=== PATIENT | male | born 1950 | race Caucasian/White ===

== ENCOUNTER 2020-06-05 06:11 | Inpatient (IN) ==
[2020-06-05] MEDS ORDERED: Al Hydrox/Mg Hydrox/Simet LIQ 30 ML UDC PO ONE (06:51)
[2020-06-05] MEDS ORDERED: Famotidine IV 10 MG/ML 2 ml VIAL (20 mg) IV ONE (06:51)
[2020-06-05] MEDS ORDERED: NS 0.9% 1000 ml BAG 1,000 ML IV ONE (07:49)
[2020-06-05] MEDS ORDERED: Labetalol IV 5 MG/ML 20 ml VIAL IV PUSH ONE (08:15)
[2020-06-05 08:35] LABS: ABS Lymphocytes 0.6 10^3/ul (1.0-4.8); ABS Monocytes 0.6 10^3/ul (0-0.8); ABS Neutrophils 14.7 10^3/ul (1.5-7.7); Eosinophil % 0.1 %; Hematocrit 52 % (42-52); Hemoglobin 17.9 g/dL (14.0-18.0); Lymphocyte % 3.8 %; Mean Corpuscular HGB Conc 34 g/dL (31-36); Mean Corpuscular Hemoglobin 32 pg (27-31); Mean Corpuscular Volume 92 fL (80-94); Mean Platelet Volume 9.1 fL (7.4-10.4); Nucleated Red Blood Cells % 0.1; Platelet Count 179 10^3/uL (150-450); Red Blood Count 5.64 10^6 /uL (4.18-5.48); Red Cell Distribution Width 14 % (10-15); White Blood Count 15.9 10^3/uL (3.5-10.8)
[2020-06-05 08:46] LABS: Troponin I 0.01 ng/mL (<0.03)
[2020-06-05 08:48] LABS: ALT 10 U/L (7-52); Albumin 4.6 g/dL (3.2-5.2); Albumin/Globulin Ratio 1.6 (1-3); Alkaline Phosphatase 114 U/L (34-104); BUN/Creatinine Ratio 14.5 (8-20); Blood Urea Nitrogen 11 mg/dL (6-24); CO2 Carbon Dioxide 24 mmol/L (22-32); Calcium 9.7 mg/dL (8.6-10.3); Chloride 102 mmol/L (101-111); EGFR African American 122.7 (>60); EGFR Non-African American 101.4 (>60); Globulin 2.8 g/dL (2-4); Glucose 180 mg/dL (70-100); Lipase < 10 U/L (11.0-82.0); Sodium 140 mmol/L (135-145); Total Protein 7.4 g/dL (6.4-8.9)
[2020-06-05] MEDS ORDERED: Iohexol 300 (CONTRAST) 10 ML SDV IV ONE (09:16)
[2020-06-05 09:45] LABS: Anion Gap 14 mmol/L (2-11)
[2020-06-05] MEDS ORDERED: hydrALAZINE 20 mg/ml 1 ML Vial IV IV SLOW PU ONE ×2 (11:20→21:22)
[2020-06-05 11:26] LABS: Potassium Redraw 3.2 mmol/L (3.5-5.0)
[2020-06-05 11:28] LABS: Troponin I 0.02 ng/mL (<0.03)
[2020-06-05] MEDS ORDERED: Morphine 4 MG/ML VIAL (1 ml) IV ONE (11:50)
[2020-06-05 13:14] LABS: Magnesium 1.9 mg/dL (1.9-2.7)
[2020-06-05 14:48] LABS: C Reactive Protein 8.42 mg/L (<8.01)
[2020-06-05] MEDS ORDERED: Gadoteridol (CONTRAST) 279.3 MG/ML 10 ML IV ONE (16:15)
[2020-06-05] MEDS: KCL 20 MEQ/100 ML IVPREMIX 20 MEQ/100 ML BAG IV SCH ×2 (16:16→19:48)
[2020-06-05] MEDS: Morphine 2 MG/ML SYRINGE IV PRN (21:51)
[2020-06-05] MEDS: NS 0.9% 1000 ml BAG 1,000 ML IV SCH (21:53)
[2020-06-06] MEDS: Morphine 2 MG/ML SYRINGE IV PRN (02:23)
[2020-06-06 04:42] LABS: ABS Basophils 0.1 10^3/ul (0-0.2); ABS Eosinophils 0.1 10^3/ul (0-0.6); ABS Lymphocytes 1.1 10^3/ul (1.0-4.8); ABS Monocytes 1.4 10^3/ul (0-0.8); ABS Neutrophils 11.1 10^3/ul (1.5-7.7); Eosinophil % 0.5 %; Hematocrit 46 % (42-52); Hemoglobin 15.8 g/dL (14.0-18.0); Lymphocyte % 7.8 %; Mean Corpuscular HGB Conc 34 g/dL (31-36); Mean Corpuscular Hemoglobin 32 pg (27-31); Mean Corpuscular Volume 93 fL (80-94); Mean Platelet Volume 9.2 fL (7.4-10.4); Nucleated Red Blood Cells % 0.1; Platelet Count 150 10^3/uL (150-450); Red Blood Count 4.99 10^6 /uL (4.18-5.48); Red Cell Distribution Width 14 % (10-15); White Blood Count 13.7 10^3/uL (3.5-10.8)
[2020-06-06 04:59] LABS: BUN/Creatinine Ratio 15.1 (8-20); Calcium 8.9 mg/dL (8.6-10.3); EGFR African American 128.5 (>60); EGFR Non-African American 106.2 (>60)
[2020-06-06 06:58] LABS: Magnesium 1.8 mg/dL (1.9-2.7)
[2020-06-06] MEDS: KCL 20 MEQ/100 ML IVPREMIX 20 MEQ/100 ML BAG IV SCH ×3 (07:21→20:14)
[2020-06-06] MEDS ORDERED: Pantoprazole VIAL 40 MG VIAL IV SCH (09:00)
[2020-06-06] MEDS: NS 0.9% 1000 ml BAG 1,000 ML IV SCH (10:52)
[2020-06-06] MEDS ORDERED: fentaNYL 100 mcg/2 ml 50 MCG/ML VIAL ONE (11:02)
[2020-06-06] MEDS ORDERED: Midazolam 10 mg/10 ml VIAL 1 mg/ml 10 ml VIAL (10 mg) ONE (11:02)
[2020-06-06] MEDS ORDERED: Piperacillin/Tazobac ADVAN 3.375 GM in NS 0.9% 100 ml BAG 100 ML IV ONE (15:58)
[2020-06-06] MEDS ORDERED: Zosyn per Pharmacy NOTE FOLLOW UP SCH (16:00)
[2020-06-06] MEDS ORDERED: Magnesium Sulfate 2 gm BAG 2 GM/50 ML BAG IVPB ONE (16:49)
[2020-06-06] MEDS ORDERED: KCL 20 MEQ/100 ML IVPREMIX 20 MEQ/100 ML BAG IV ONE (17:00)
[2020-06-06 17:39] LABS: Albumin 3.9 g/dL (3.2-5.2); Albumin/Globulin Ratio 1.8 (1-3); Globulin 2.2 g/dL (2-4); Indirect Bilirubin 1.8 mg/dL (0.3-1.0); Total Bilirubin 2.4 mg/dL (0.2-1.0); Total Protein 6.1 g/dL (6.4-8.9)
[2020-06-06] MEDS: Pantoprazole VIAL 40 MG VIAL IV SCH (21:21)
[2020-06-06] MEDS: ZOSYN 3.375 GM Q8H per EXTENDED INFUSION IV SCH (21:21)
[2020-06-07] MEDS: NS 0.9% 1000 ml BAG 1,000 ML IV SCH (01:28)
[2020-06-07] MEDS: ZOSYN 3.375 GM Q8H per EXTENDED INFUSION IV SCH ×2 (04:51→16:12)
[2020-06-07 06:13] LABS: ABS Eosinophils 0.2 10^3/ul (0-0.6); ABS Lymphocytes 0.8 10^3/ul (1.0-4.8); ABS Monocytes 1.1 10^3/ul (0-0.8); ABS Neutrophils 7.3 10^3/ul (1.5-7.7); Eosinophil % 2.2 %; Hematocrit 43 % (42-52); Hemoglobin 14.7 g/dL (14.0-18.0); Lymphocyte % 8.1 %; Mean Corpuscular HGB Conc 34 g/dL (31-36); Mean Corpuscular Hemoglobin 32 pg (27-31); Mean Corpuscular Volume 94 fL (80-94); Nucleated Red Blood Cells % 0.1; Platelet Count 132 10^3/uL (150-450); Red Blood Count 4.62 10^6 /uL (4.18-5.48); Red Cell Distribution Width 14 % (10-15); White Blood Count 9.4 10^3/uL (3.5-10.8)
[2020-06-07 06:37] LABS: Albumin 3.4 g/dL (3.2-5.2); Albumin/Globulin Ratio 1.8 (1-3); BUN/Creatinine Ratio 16.4 (8-20); Calcium 8.4 mg/dL (8.6-10.3); EGFR African American 128.5 (>60); EGFR Non-African American 106.2 (>60); Globulin 1.9 g/dL (2-4); Potassium 3.5 mmol/L (3.5-5.0); Total Bilirubin 2.3 mg/dL (0.2-1.0); Total Protein 5.3 g/dL (6.4-8.9)
[2020-06-07] MEDS: Pantoprazole VIAL 40 MG VIAL IV SCH ×2 (08:24→20:19)
[2020-06-07] MEDS: KCL 20 MEQ/100 ML IVPREMIX 20 MEQ/100 ML BAG IV SCH ×3 (08:25→14:13)
[2020-06-07] MEDS ORDERED: Potassium Chloride LIQUID 20 MEQ/15 ML LIQUID PO ONE (14:51)
[2020-06-07 16:17] LABS: Troponin I 0.03 ng/mL (<0.03)
[2020-06-07] MEDS ORDERED: Enoxaparin 100 MG/ML SYR SUBCUT ONE (18:43)
[2020-06-08] MEDS: ZOSYN 3.375 GM Q8H per EXTENDED INFUSION IV SCH ×4 (01:27→16:33)
[2020-06-08 06:41] LABS: INR 1.36 (0.82-1.09)
[2020-06-08 06:48] LABS: ABS Basophils 0.1 10^3/ul (0-0.2); ABS Eosinophils 0.3 10^3/ul (0-0.6); ABS Lymphocytes 0.8 10^3/ul (1.0-4.8); ABS Monocytes 0.7 10^3/ul (0-0.8); ABS Neutrophils 5.5 10^3/ul (1.5-7.7); Eosinophil % 3.6 %; Hematocrit 44 % (42-52); Hemoglobin 15.1 g/dL (14.0-18.0); Lymphocyte % 11.2 %; Mean Corpuscular HGB Conc 34 g/dL (31-36); Mean Corpuscular Hemoglobin 32 pg (27-31); Mean Corpuscular Volume 95 fL (80-94); Mean Platelet Volume 9.3 fL (7.4-10.4); Platelet Count 133 10^3/uL (150-450); Red Blood Count 4.69 10^6 /uL (4.18-5.48); Red Cell Distribution Width 15 % (10-15); White Blood Count 7.3 10^3/uL (3.5-10.8)
[2020-06-08 06:55] LABS: BUN/Creatinine Ratio 14.9 (8-20); Calcium 8.7 mg/dL (8.6-10.3); EGFR African American 126.5 (>60); EGFR Non-African American 104.6 (>60); Magnesium 1.9 mg/dL (1.9-2.7); Potassium 3.7 mmol/L (3.5-5.0)
[2020-06-08] MEDS ORDERED: Magnesium Sulfate 2 gm BAG 2 GM/50 ML BAG IVPB ONE (07:02)
[2020-06-08] MEDS ORDERED: Propofol 10 MG/ML 20 ML BTL ONE (08:04)
[2020-06-08] MEDS ORDERED: Lidocaine 2% PF 5 ML VIAL ONE (08:04)
[2020-06-08] MEDS ORDERED: Midazolam 2 mg/2 ml VIAL 1 mg/ml 2 ml VIAL (2 mg) ONE (08:05)
[2020-06-08] MEDS ORDERED: fentaNYL 250 mcg/5 ml 50 MCG/ML 5 ml VIAL (250 MCG) ONE (08:05)
[2020-06-08] MEDS ORDERED: Rocuronium 50 mg VIAL 10 mg/ml 5 ml VIAL (50 mg) ONE (08:05)
[2020-06-08] MEDS ORDERED: NS 0.9% 1000 ml BAG 1,000 ML IV SCH ×2 (08:30→16:15)
[2020-06-08] MEDS: Pantoprazole VIAL 40 MG VIAL IV SCH ×2 (08:45→19:53)
[2020-06-08] MEDS: KCL 10 MEQ/50 ML IVPREMIX 10 MEQ/50 ML BAG IV SCH ×2 (11:10→11:50)
[2020-06-08] MEDS ORDERED: KCL premix 10 MEQ/50 ML x 3 RUNS IV SCH (11:30)
[2020-06-08] MEDS: KCL premix 10 MEQ/50 ML x 3 RUNS IV SCH ×2 (12:44→16:27)
[2020-06-08] MEDS ORDERED: Iohexol 350 (CONTRAST) 200 ML MDV IV ONE (13:30)
[2020-06-08] MEDS ORDERED: VERAPAMIL 2.5 MG/ML 2 ML VIAL ** 5 mg/2 ml ONE (13:30)
[2020-06-08] MEDS ORDERED: Midazolam 5 mg/5 ml VIAL 1 mg/ml 5 ml VIAL (5 mg) ONE (13:30)
[2020-06-08] MEDS ORDERED: diPHENhydraMINE IV 50 MG/ML 1 ml VIAL (BENADRYL) ONE (13:30)
[2020-06-08] MEDS ORDERED: Heparin 2 UNITS/ML 1000 mls 2,000 ML IV ONE (13:30)
[2020-06-08] MEDS ORDERED: Lidocaine 1% VIAL 10 MG/ML VIAL ONE (13:30)
[2020-06-08] MEDS ORDERED: nitroGLYCERIN DRIP 25,000 MCG/250 ML BTL ONE (13:30)
[2020-06-08] MEDS ORDERED: Heparin 1,000 UNIT/ML 10 ml (10,000 UNITS) CATHLAB/DIALYSIS ONE (13:30)
[2020-06-08] MEDS ORDERED: hydrALAZINE 20 mg/ml 1 ML Vial IV ONE ×2 (14:25→16:07)
[2020-06-08] MEDS ORDERED: Nitro 2% OINT (Nitroglycerin) 1 INCH/PAK ONE (14:27)
[2020-06-08] MEDS ORDERED: Adenosine (DIAGNOSTIC) 3 mg/ml 20 ML VIAL (60 MG) IV ONE (14:42)
[2020-06-08] MEDS ORDERED: Heparin 2 UNITS/ML 1000 mls 1,000 ML IV ONE (15:15)
[2020-06-09] MEDS: ZOSYN 3.375 GM Q8H per EXTENDED INFUSION IV SCH ×2 (02:55→09:31)
[2020-06-09 05:29] LABS: ABS Eosinophils 0.1 10^3/ul (0-0.6); ABS Lymphocytes 0.5 10^3/ul (1.0-4.8); ABS Monocytes 0.9 10^3/ul (0-0.8); ABS Neutrophils 6.8 10^3/ul (1.5-7.7); Eosinophil % 1.1 %; Hematocrit 41 % (42-52); Hemoglobin 13.9 g/dL (14.0-18.0); Lymphocyte % 5.8 %; Mean Corpuscular HGB Conc 34 g/dL (31-36); Mean Corpuscular Hemoglobin 32 pg (27-31); Mean Corpuscular Volume 93 fL (80-94); Platelet Count 164 10^3/uL (150-450); Red Blood Count 4.36 10^6 /uL (4.18-5.48); Red Cell Distribution Width 14 % (10-15); White Blood Count 8.2 10^3/uL (3.5-10.8)
[2020-06-09 05:46] LABS: BUN/Creatinine Ratio 16.4 (8-20); Calcium 8.5 mg/dL (8.6-10.3); EGFR African American 128.5 (>60); EGFR Non-African American 106.2 (>60); Magnesium 1.9 mg/dL (1.9-2.7); Potassium 3.6 mmol/L (3.5-5.0)
[2020-06-09] MEDS: Pantoprazole VIAL 40 MG VIAL IV SCH (09:31)
[2020-06-09 10:27] LABS: INR 1.32 (0.82-1.09)
[2020-06-09 14:14] VITALS: BP 155/88
== END 2020-06-09 15:35 | disposition home or self-care (01) ==
LOC: MEDTELE 06:11 → ED 06:11 → OBSVTOIN 12:19 → MEDTELE 13:39
PROVIDERS: ADMIT Internal Medicine; ATTEND Internal Medicine

== ENCOUNTER 2021-06-18 13:17 | Inpatient (IN) ==
[2021-06-18] MEDS ORDERED: Senna TAB 8.6 mg TAB PO PRN (17:12)
[2021-06-19 07:05] LABS: ABS Eosinophils 0.2 10^3/ul (0-0.6); ABS Lymphocytes 1.2 10^3/ul (1.0-4.8); ABS Monocytes 0.9 10^3/ul (0-0.8); ABS Neutrophils 4.7 10^3/ul (1.5-7.7); Eosinophil % 2.3 %; Hematocrit 44 % (42-52); Hemoglobin 15.3 g/dL (14.0-18.0); Lymphocyte % 17.6 %; Mean Corpuscular HGB Conc 35 g/dL (31-36); Mean Corpuscular Hemoglobin 32 pg (27-31); Mean Corpuscular Volume 93 fL (80-94); Mean Platelet Volume 9.7 fL (7.4-10.4); Platelet Count 150 10^3/uL (150-450); Red Blood Count 4.74 10^6 /uL (4.18-5.48); Red Cell Distribution Width 15 % (10-15)
[2021-06-19 07:25] LABS: Albumin 3.7 g/dL (3.2-5.2); Albumin/Globulin Ratio 1.9 (1-3); Calcium 9.1 mg/dL (8.6-10.3); Globulin 1.9 g/dL (2-4); Potassium 3.9 mmol/L (3.5-5.0); Total Bilirubin 1.3 mg/dL (0.2-1.0); Total Protein 5.6 g/dL (6.4-8.9); eGFR CKD-EPI 92.6 (>60)
[2021-06-19] MEDS: Aspirin EC 81 mg TAB.EC (enteric coated) PO SCH (09:55)
[2021-06-19] MEDS: Cholecalciferol (VIT D3) 1,000 unit TAB PO SCH (09:57)
[2021-06-20] MEDS: Aspirin EC 81 mg TAB.EC (enteric coated) PO SCH (10:20)
[2021-06-20] MEDS: Cholecalciferol (VIT D3) 1,000 unit TAB PO SCH (10:20)
[2021-06-21] MEDS: Aspirin EC 81 mg TAB.EC (enteric coated) PO SCH (08:16)
[2021-06-21] MEDS: Cholecalciferol (VIT D3) 1,000 unit TAB PO SCH (08:16)
[2021-06-22] MEDS: Cholecalciferol (VIT D3) 1,000 unit TAB PO SCH (09:25)
[2021-06-22] MEDS: Aspirin EC 81 mg TAB.EC (enteric coated) PO SCH (09:26)
[2021-06-23] MEDS: Aspirin EC 81 mg TAB.EC (enteric coated) PO SCH (09:41)
[2021-06-23] MEDS: Cholecalciferol (VIT D3) 1,000 unit TAB PO SCH (09:41)
[2021-06-24] MEDS: Aspirin EC 81 mg TAB.EC (enteric coated) PO SCH (09:10)
[2021-06-24] MEDS: Cholecalciferol (VIT D3) 1,000 unit TAB PO SCH (09:10)
[2021-06-24 12:05] LABS: Urine Appearance Clear; Urine Bilirubin Negative (Negative); Urine Blood 1+ (Negative); Urine Color Yellow; Urine Glucose Negative (Negative); Urine Ketones Negative (Negative); Urine Nitrite Negative (Negative); Urine Protein Negative (Negative); Urine Specific Gravity 1.011 (1.002-1.030); Urine Urobilinogen Negative (Negative)
[2021-06-24 12:12] LABS: Urine Bacteria Absent (Absent); Urine Red Blood Cell 2+(6-10/hpf) (Absent); Urine Squamous Epithelial Cell Present (Absent); Urine White Blood Cell 1+(6-10/hpf) (Absent)
[2021-06-25] MEDS: Aspirin EC 81 mg TAB.EC (enteric coated) PO SCH (09:20)
[2021-06-25] MEDS: Cholecalciferol (VIT D3) 1,000 unit TAB PO SCH (09:20)
[2021-06-26 06:47] LABS: ABS Eosinophils 0.2 10^3/ul (0-0.6); ABS Lymphocytes 1.2 10^3/ul (1.0-4.8); ABS Monocytes 0.7 10^3/ul (0-0.8); ABS Neutrophils 5.1 10^3/ul (1.5-7.7); Eosinophil % 2.3 %; Hematocrit 42 % (42-52); Hemoglobin 14.3 g/dL (14.0-18.0); Lymphocyte % 16.8 %; Mean Corpuscular HGB Conc 34 g/dL (31-36); Mean Corpuscular Hemoglobin 32 pg (27-31); Mean Corpuscular Volume 93 fL (80-94); Mean Platelet Volume 9.6 fL (7.4-10.4); Platelet Count 142 10^3/uL (150-450); Red Blood Count 4.53 10^6 /uL (4.18-5.48); Red Cell Distribution Width 15 % (10-15); White Blood Count 7.2 10^3/uL (3.5-10.8)
[2021-06-26 07:15] LABS: Albumin 3.5 g/dL (3.2-5.2); Albumin/Globulin Ratio 2.1 (1-3); Calcium 8.8 mg/dL (8.6-10.3); Globulin 1.7 g/dL (2-4); Potassium 3.8 mmol/L (3.5-5.0); Total Bilirubin 0.6 mg/dL (0.2-1.0); Total Protein 5.2 g/dL (6.4-8.9); eGFR CKD-EPI 97.7 (>60)
[2021-06-26] MEDS: Cholecalciferol (VIT D3) 1,000 unit TAB PO SCH (08:42)
[2021-06-26] MEDS: Aspirin EC 81 mg TAB.EC (enteric coated) PO SCH (08:42)
[2021-06-27] MEDS: Aspirin EC 81 mg TAB.EC (enteric coated) PO SCH (11:42)
[2021-06-27] MEDS: Cholecalciferol (VIT D3) 1,000 unit TAB PO SCH (11:43)
[2021-06-28] MEDS: Aspirin EC 81 mg TAB.EC (enteric coated) PO SCH (10:05)
[2021-06-28] MEDS: Cholecalciferol (VIT D3) 1,000 unit TAB PO SCH (10:06)
[2021-06-29] MEDS: Aspirin EC 81 mg TAB.EC (enteric coated) PO SCH (09:09)
[2021-06-29] MEDS: Cholecalciferol (VIT D3) 1,000 unit TAB PO SCH (09:09)
[2021-06-30] MEDS: Cholecalciferol (VIT D3) 1,000 unit TAB PO SCH (09:39)
[2021-06-30] MEDS: Aspirin EC 81 mg TAB.EC (enteric coated) PO SCH (09:39)
[2021-07-01] MEDS: Aspirin EC 81 mg TAB.EC (enteric coated) PO SCH (07:43)
[2021-07-01] MEDS: Cholecalciferol (VIT D3) 1,000 unit TAB PO SCH (07:43)
[2021-07-02] MEDS: Aspirin EC 81 mg TAB.EC (enteric coated) PO SCH (10:48)
[2021-07-02] MEDS: Cholecalciferol (VIT D3) 1,000 unit TAB PO SCH (10:49)
[2021-07-03 04:25] LABS: ABS Eosinophils 0.1 10^3/ul (0-0.6); ABS Lymphocytes 1.4 10^3/ul (1.0-4.8); ABS Monocytes 0.7 10^3/ul (0-0.8); ABS Neutrophils 4.3 10^3/ul (1.5-7.7); Eosinophil % 2.2 %; Hematocrit 44 % (42-52); Hemoglobin 14.6 g/dL (14.0-18.0); Lymphocyte % 20.8 %; Mean Corpuscular HGB Conc 34 g/dL (31-36); Mean Corpuscular Hemoglobin 31 pg (27-31); Mean Corpuscular Volume 92 fL (80-94); Mean Platelet Volume 9.6 fL (7.4-10.4); Nucleated Red Blood Cells % 0.1; Platelet Count 123 10^3/uL (150-450); Red Cell Distribution Width 15 % (10-15); White Blood Count 6.5 10^3/uL (3.5-10.8)
[2021-07-03 04:44] LABS: Albumin 3.6 g/dL (3.2-5.2); Albumin/Globulin Ratio 1.8 (1-3); Calcium 9.3 mg/dL (8.6-10.3); Potassium 3.8 mmol/L (3.5-5.0); Total Bilirubin 1.1 mg/dL (0.2-1.0); Total Protein 5.6 g/dL (6.4-8.9); eGFR CKD-EPI 94.6 (>60)
[2021-07-03] MEDS: Aspirin EC 81 mg TAB.EC (enteric coated) PO SCH (09:30)
[2021-07-03] MEDS: Cholecalciferol (VIT D3) 1,000 unit TAB PO SCH (09:30)
[2021-07-04] MEDS: Aspirin EC 81 mg TAB.EC (enteric coated) PO SCH (08:42)
[2021-07-04] MEDS: Cholecalciferol (VIT D3) 1,000 unit TAB PO SCH (08:42)
[2021-07-05 04:55] VITALS: BP 143/86
[2021-07-05] MEDS: Cholecalciferol (VIT D3) 1,000 unit TAB PO SCH (07:46)
[2021-07-05] MEDS: Aspirin EC 81 mg TAB.EC (enteric coated) PO SCH (07:46)
== END 2021-07-05 16:39 | disposition home health service (06) | DRG 58 ==
LOC: PMRU 15:59
PROVIDERS: ADMIT Physical Medicine & Rehabilitation; ATTEND Physical Medicine & Rehabilitation

== ENCOUNTER 2023-05-10 21:15 | Inpatient (IN) ==
[2023-05-10 22:19] LABS: ABS Basophils 0.1 10^3/uL (0.0-0.1); ABS Eosinophils 0.3 10^3/uL (0.0-0.5); ABS Monocytes 1.2 10^3/uL (0.0-1.1); ABS Neutrophils 9.9 10^3/uL (1.5-7.6); ABS Nucleated RBC 0.01 10^3/ul; Eosinophil % 2.4 %; Hematocrit 40.8 % (38-53); Hemoglobin 13.9 g/dL (13.2-16.3); Lymphocyte % 7.7 %; Mean Corpuscular Hemoglobin 31.9 pg (27-33); Mean Corpuscular Hgb Conc 34.1 g/dL (31-36); Mean Corpuscular Volume 93.6 fL (80-97); Mean Platelet Volume 7.8 fL (7.5-11.2); Platelet Count 260 10^3/uL (150-450); Red Blood Count 4.36 10^6/uL (4.06-5.63); Red Cell Distribution Width 15.2 % (12-17); White Blood Count 12.4 10^3/uL (3.6-10.2)
[2023-05-10 22:25] LABS: INR 1.21 (0.83-1.13)
[2023-05-10 23:09] LABS: Albumin 3.9 g/dL (3.2-5.2); Calcium 9.1 mg/dL (8.6-10.3); Creatinine, Serum 0.85 mg/dL (0.67-1.17); Potassium 4.6 mmol/L (3.5-5.0); Total Bilirubin 1.2 mg/dL (0.2-1.0); Total Protein 5.9 g/dL (6.4-8.9); eGFR CKD-EPI 92.3 (>60)
[2023-05-10] MEDS: Albuterol 2.5mg/3 ml (0.083%) NEB.SOLN INH ONE (23:25)
[2023-05-10 23:42] LABS: High Sensitivity Troponin 1 Hr 812 pg/mL (<20)
[2023-05-10 23:47] LABS: Activated Partial Thrombo Time 38.7 seconds (26.0-38.0)
[2023-05-11] MEDS: Heparin DRIP 25,000 UNITS BAG 25,000 UNITS/250 ML BAG IV SCH (00:10)
[2023-05-11] MEDS: Heparin 5000 UNITS/ML 1 mL VIAL IV SCH (00:11)
[2023-05-11 01:42] LABS: High Sensitivity Troponin 3 Hr 685 pg/mL (<20)
[2023-05-11] MEDS ORDERED: Albuterol HFA INHALER 8 gm MDI INH PRN (01:51)
[2023-05-11] MEDS: cefTRIAXone 1 gm/50 mL D5W 1 GM/50 ML BAG IV SCH (02:55)
[2023-05-11] MEDS: Azithromycin 500 mg/250 ml NS 500 MG/250 ML BAG IVPB SCH (03:35)
[2023-05-11 08:47] LABS: Urine Appearance Clear; Urine Bilirubin Negative (Negative); Urine Blood Negative (Negative); Urine Color Yellow; Urine Glucose Negative (Negative); Urine Ketones Negative (Negative); Urine Nitrite Negative (Negative); Urine Protein Negative (Negative); Urine Specific Gravity 1.043 (1.002-1.030); Urine Urobilinogen 1+ (Negative); Urine pH 6.5 (5.0-8.0)
[2023-05-12] MEDS: cefTRIAXone 1 gm/50 mL D5W 1 GM/50 ML BAG IV SCH (03:21)
[2023-05-12] MEDS: Azithromycin 500 mg/250 ml NS 500 MG/250 ML BAG IVPB SCH (03:59)
[2023-05-12 07:04] LABS: ABS Basophils 0.1 10^3/uL (0.0-0.1); ABS Eosinophils 0.3 10^3/uL (0.0-0.5); ABS Lymphocytes 1.1 10^3/uL (1.0-4.8); ABS Monocytes 0.8 10^3/uL (0.0-1.1); ABS Neutrophils 8.1 10^3/uL (1.5-7.6); ABS Nucleated RBC 0.01 10^3/ul; Eosinophil % 2.6 %; Hematocrit 39.6 % (38-53); Hemoglobin 13.6 g/dL (13.2-16.3); Lymphocyte % 10.6 %; Mean Corpuscular Hemoglobin 32.2 pg (27-33); Mean Corpuscular Hgb Conc 34.4 g/dL (31-36); Mean Corpuscular Volume 93.6 fL (80-97); Mean Platelet Volume 8.5 fL (7.5-11.2); Nucleated Red Blood Cells % 0.1 %/100WBC (0.0-0.8); Platelet Count 236 10^3/uL (150-450); Red Blood Count 4.23 10^6/uL (4.06-5.63); Red Cell Distribution Width 14.8 % (12-17); White Blood Count 10.3 10^3/uL (3.6-10.2)
[2023-05-12 07:13] LABS: Calcium 8.6 mg/dL (8.6-10.3); Creatinine, Serum 0.68 mg/dL (0.67-1.17); Potassium 3.8 mmol/L (3.5-5.0); eGFR CKD-EPI 98.8 (>60)
[2023-05-12] MEDS ORDERED: Aminophylline 25 MG/ML VIAL ONE (13:07)
[2023-05-12] MEDS ORDERED: Regadenoson 0.4 MG/5 ML SYRINGE ONE (13:07)
[2023-05-12] MEDS: NS 0.9% 1000 ml BAG 1,000 ML IV SCH (23:50)
[2023-05-13 07:16] LABS: ABS Basophils 0.1 10^3/uL (0.0-0.1); ABS Eosinophils 0.2 10^3/uL (0.0-0.5); ABS Lymphocytes 1.2 10^3/uL (1.0-4.8); ABS Monocytes 0.9 10^3/uL (0.0-1.1); ABS Neutrophils 6.4 10^3/uL (1.5-7.6); ABS Nucleated RBC 0.01 10^3/ul; Eosinophil % 2.8 %; Hematocrit 38.8 % (38-53); Hemoglobin 13.3 g/dL (13.2-16.3); Lymphocyte % 13.9 %; Mean Corpuscular Hemoglobin 31.9 pg (27-33); Mean Corpuscular Hgb Conc 34.3 g/dL (31-36); Mean Corpuscular Volume 93.1 fL (80-97); Mean Platelet Volume 7.8 fL (7.5-11.2); Nucleated Red Blood Cells % 0.1 %/100WBC (0.0-0.8); Platelet Count 234 10^3/uL (150-450); Red Blood Count 4.16 10^6/uL (4.06-5.63); Red Cell Distribution Width 14.8 % (12-17); White Blood Count 8.8 10^3/uL (3.6-10.2)
[2023-05-13 08:07] LABS: Calcium 8.7 mg/dL (8.6-10.3); Creatinine, Serum 0.78 mg/dL (0.67-1.17); Potassium 3.8 mmol/L (3.5-5.0); eGFR CKD-EPI 94.8 (>60)
[2023-05-13] MEDS ORDERED: Lidocaine 1% MPF 5 ML VIAL ONE (10:57)
[2023-05-13] MEDS ORDERED: Iohexol 350 (CONTRAST) 200 ML MDV IV ONE (10:57)
[2023-05-13] MEDS ORDERED: Heparin 2 UNITS/ML 1000 mls 2,000 ML IV ONE (10:57)
[2023-05-13] MEDS ORDERED: VERAPAMIL 2.5 MG/ML 2 ML VIAL ** 5 mg/2 ml ONE (10:58)
[2023-05-13] MEDS ORDERED: Heparin 1,000 UNIT/ML 10 ml (10,000 UNITS) CATHLAB/DIALYSIS ONE (10:58)
[2023-05-13] MEDS ORDERED: nitroGLYCERIN DRIP 25,000 MCG/250 ML BTL ONE (10:58)
[2023-05-13] MEDS ORDERED: Midazolam 5 mg/5 ml VIAL 1 mg/ml 5 ml VIAL (5 mg) ONE (11:17)
[2023-05-13] MEDS ORDERED: fentaNYL 100 mcg/2 ml 50 MCG/ML VIAL ONE (11:17)
[2023-05-13] MEDS ORDERED: Atropine 0.1 MG/ML 10 ml SYR (1 mg) ONE (11:20)
[2023-05-13] MEDS ORDERED: niCARdipine 0.1MG/ML IVPREMIX 20 MG/200 ML BAG IV ONE (11:55)
[2023-05-13] MEDS: fentaNYL 100 mcg/2 ml 50 MCG/ML VIAL IV SLOW PU ONE (13:08)
[2023-05-13] MEDS: Midazolam 10 mg/10 ml VIAL 1 mg/ml 10 ml VIAL (10 mg) IV SLOW PU ONE (13:08)
[2023-05-13 17:55] VITALS: BP 172/100
[2023-05-18] MEDS: Iodixanol (CONTRAST) 320 MG/ML 100 ML SDV IV ONE (08:57)
== END 2023-05-13 19:37 | disposition short-term general hospital (02) | DRG 190 ==
LOC: ED 21:15 → SUATTDRO 05-11 01:46 → EDHOLD 05-11 01:46 → MEDTELE 05-11 15:28
PROVIDERS: ADMIT Internal Medicine; ATTEND Internal Medicine